=== PATIENT | female | born 1945 | race African-American/Black ===

== ENCOUNTER 2020-03-13 15:18 | Outpatient (CLI) | payer MEDICARE ==
--- NOTE | 2020-03-13 15:45 | RAD ---
3 views of the right shoulder: 03/13/2020 COMPARISON: None HISTORY: Pain, fall FINDINGS: There is mild degenerative change involving the right acromioclavicular joint. No widening of the acromioclavicular or coracoclavicular interspace. No acute fracture or dislocation. There is a large mass like opacity in the right hilar region extending into the right lung apex with complete opacification of the right upper lobe region. This opacity measures 10.6 x 13[address] is advised. This is suspicious for lung cancer. IMPRESSION: Large mass in the right hilum/right lung apex for which CT of the chest with IV contrast is advised. No acute fracture or dislocation is seen involving the right shoulder. Results discussed with Dr. Leal via phone at 3:40 PM 03/13/2020 Code CR
== END 2020-03-13 15:19 | disposition home or self-care (01) ==
LOC: BICRAD 15:18
PROVIDERS: ATTEND Family Medicine
DX: M25.511 Pain in right shoulder (principal); R91.8 Other nonspecific abnormal finding of lung field

== ENCOUNTER 2020-03-25 14:42 | Outpatient (CLI) | payer MEDICARE ==
[~2020-03-25 14:42] MED LIST: Iopamidol-370 76% 500 ML 1 ML ONE
[2020-03-25 15:19] LABS: Estimated GFR-MDRD - POC Greater than 90
--- NOTE | 2020-03-25 15:58 | CT ---
Chest CT with IV contrast: 03/25/2020 COMPARISON: None HISTORY: Abnormal shoulder radiograph, concern for malignancy TECHNIQUE: Axial CT imaging obtained at 3 mm intervals through the chest with IV contrast. Coronal an d sagittal reformatted imaging obtained. FINDINGS: There is a mildly enlarged axillary lymph node on the right measuring 1.1 cm in short axis dimension. Mildly prominent left axillary lymph nodes are noted measuring just less than a centimeter in size. There is a large heterogeneous mass lesion which fills replaces the entire right upper lobe measuring at least 11.2 cm x 10.9 cm x 11.4 cm. This lesion appears to directly invade the superior mediastinum superiorly with tumor obliterates the superior vena cava with marked narrowing of the bra chiocephalic vein. There is associated clot within the superior vena cava suggesting tumor thrombus measuring 9 mm in AP dimension, best seen on axial image 42. The bronchus supplying the right upper l obe is obliterated. Tumor encircles and narrows the right mainstem bronchus. Low-density necrotic metastatic adenopathy is noted in the precarinal region measuring 1.8 cm and in the subcarinal region measuring 1.5 cm. There are multiple small nodes in the AP window measuring up to 1 cm, suspicious for metastatic disease as well. Tumor abuts/encircles and narrows the pulmonary artery supplying the right upper lobe. There is a small associated right pleural effusion. There is a markedly enlarged and macrolobulated thyroid gland in total measuring 5.7 cm in AP dimensi on and 9 cm in transverse dimension. 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 The liver is not fully imaged on this examination. No discrete left adrenal mass. Possible small right adrenal nodule superiorly measuring 1.1 cm. There is an irregularly marginated pulmonary parenchymal nodule within the superior aspect of the lef t upper lobe laterally measuring 1 cm on image 21. Left upper lobe pulmonary nodule on image 26 measuring 5 mm and on image 32 measuring 1 cm. There is a pleural-based nodule in the left lung apex measuring 6 mm. Nonspecific groundglass opacity noted centrally within the left upper and left lower lobe. Nonspecific patchy areas of groundglass opacity are noted centrally within the right midd le and right lower lobe. Review of the osseous structures demonstrates no discrete lytic or blastic bone lesion. IMPRESSION: Large necrotic mass centered within the right upper lobe highly suspicious for bronchogen ic carcinoma with direct invasion of the mediastinum as well has findings suspicious for metastatic disease with axillary lymph nodes bilaterally and pulmonary nodules on the left. Whole-body imaging a dvised for full assessment as the abdomen is not fully imaged in the pelvis is not imaged on this exam. There may be a small right adrenal nodule. Areas of groundglass opacity within both lungs may s ignify interstitial metastatic disease or superimposed inflammatory/infectious process. 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 Results were called to Dr. Leal at 3:45 PM 03/25/2020
== END 2020-03-25 14:43 | disposition home or self-care (01) ==
LOC: BICCT 14:42
PROVIDERS: ATTEND Family Medicine
DX: C34.90 Malignant neoplasm of unspecified part of unspecified bronchus or lung (principal); R91.8 Other nonspecific abnormal finding of lung field; E27.8 Other specified disorders of adrenal gland
CPT/HCPCS: 71260; 82565; Q9967

== ENCOUNTER 2020-03-29 08:23 | Day surgery (SDC) | payer MEDICARE ==
[2020-03-28 14:00] VITALS: BMI 22.4
--- NOTE | 2020-03-29 09:20 | HP ---
HISTORY OF PRESENT ILLNESS: The patient is a 74-year-old female, half pack a day smoker for most of her life, who recently had apparently fall, complained of some shoulder pain. X-ray of the shoulder was done, which showed a right lung mass. She underwent subsequently CT, which showed and confirmed the right upper lung mass. She is here for ongoing evaluation. She has a slight cough, but no fever or chills. In fact, she denies any prior history of TB, pneumonia, or bronchial asthma. She says on a good day, she can walk a fair distance without getting markedly short of breath. She has lost 20 pounds. PAST MEDICAL HISTORY: Pertinent for diabetes, hypertension. PREVIOUS SURGERIES: None. CHRONIC MEDICATIONS: 1. Metformin 500 twice a day. 2. Aspirin 81. 3. Ramipril 2.5. 4. B12. 5. Glyburide 5 a day. ALLERGIES: NONE. SOCIAL AND FAMILY HISTORY: Unremarkable. REVIEW OF SYSTEMS: Ten-point negative. PHYSICAL EXAMINATION: VITAL SIGNS: on room air, blood pressure 130/80, pulse 80, respiratory rate 18. NECK: She has a large goiter, which has been there for 2 years, being followed by primary care physician. CHEST: Reveals rhonchi, right greater than left. CARDIAC: Normal S1, S2. No gallops. ABDOMEN: Soft without any masses. IMPRESSION: 1. Large right upper lung mass. 2. Diabetes. 3. Tobacco abuse. 4. Goiter. 5. Hypertension. PLAN: Bronchoscopy and biopsy recommended in the next several days thereafter. In the mean time, she is advised to refrain from smoking. Job ID: [id number]
[2020-03-29] MEDS ORDERED: Fentanyl 100 MCG/2 ML VIAL ONE (11:06)
[2020-03-29] MEDS ORDERED: Famotidine/PF 20 mg/2ml Vial ONE (11:06)
[2020-03-29] MEDS ORDERED: PROPOFOL 200 MG/20 ML VIAL ONE (13:11)
[2020-03-29] MEDS ORDERED: Metoclopramide HCl 10 MG/2 ML VIAL ONE (13:11)
[2020-03-29] MEDS ORDERED: Succinylcholine 200 MG/10 ml SYRINGE FS ONE (13:11)
[2020-03-29] MEDS ORDERED: Lidocaine 1% PF 5 ML VIAL ONE (13:11)
[2020-03-29] MEDS ORDERED: Ondansetron PF 4 MG/2 ML Vial ONE (13:11)
--- NOTE | 2020-03-29 13:41 | OP ---
DATE OF PROCEDURE: 03/29/2020 INDICATION: Africa Shafer is a 74-year-old female, who underwent a diagnostic bronchoscopy and right upper lung mass rule out bronchogenic carcinoma. POSTBRONCHOSCOPY DIAGNOSIS: Africa Shafer is a 74-year-old female, who underwent a diagnostic bronchoscopy and right upper lung mass rule out bronchogenic carcinoma. DESCRIPTION OF PROCEDURE: After informed consent, the patient was put to sleep under anesthesia. A #[address] The flexible Olympus video bronchoscope was then passed using an adapter. Distal trachea was visualized, which was normal. Paulina was sharp. Left lung, left upper, and left lower lobe unremarkable. In the right lung, right upper lobe bronchus, and right bronchus intermedius was markedly abnormal with nodular thickened mucosa. The basilar segments were normal. The right upper lobe bronchus was markedly narrowed, particularly the apical segment was completely occluded. I was unable to visualize any of the subsegments. The posterior 90% was open, but markedly narrowed. Area at the apical segment was lavaged with normal saline. Thereafter, multiple biopsies and brushings from the abnormal nodular mucosa corresponding to the apical segment was done. There was some brisk bleeding, which was controlled with epinephrine 1:10,000. The patient otherwise tolerated the procedure well. She will be extubated by Anesthesia. She will be discharged home eventually. The washing was sent for cytology. Brushings were sent for cytology. Biopsies were sent to Histopathology. patient tolerated the procedure well. Results of the above test reported to the patient and family. Further recommendation thereafter. Please note, the patient will be extubated by Anesthesia, once she awakes she will be discharged home. Job ID: [id number]
--- NOTE | 2020-04-03 08:30 | EKG ---
Test Reason : JBM Blood Pressure : / mmHG Vent. Rate : 071 BPM Atrial Rate : 071 BPM P-R Int : 160 ms QRS Dur : 072 ms QT Int : 398 ms P-R-T Axes : 059 -07 047 degrees QTc Int : 432 ms Normal sinus rhythm Normal ECG No previous ECGs available Confirmed by LEILANI LEUNG MD ([id number] on 04/03/2020 8:30:16 AM Referred By: FRANSICO Confirmed By:LEILANI LEUNG MD
== END 2020-03-29 14:30 | disposition home or self-care (01) ==
LOC: SDC 08:23
PROVIDERS: ATTEND Internal Medicine Pulmonary Disease
PROC: 0BB48ZX Excision of Right Upper Lobe Bronchus, Via Natural or Artificial Opening Endoscopic, Diagnostic (ICD-10-PCS; principal; 2020-03-29)
PROC: 0BDC8ZX Extraction of Right Upper Lung Lobe, Via Natural or Artificial Opening Endoscopic, Diagnostic (ICD-10-PCS; 2020-03-29)
DX: C34.11 Malignant neoplasm of upper lobe, right bronchus or lung (principal); E11.9 Type 2 diabetes mellitus without complications; I10 Essential (primary) hypertension; F17.210 Nicotine dependence, cigarettes, uncomplicated; E04.9 Nontoxic goiter, unspecified; E78.5 Hyperlipidemia, unspecified; K59.09 Other constipation; Z79.82 Long term (current) use of aspirin; Z79.84 Long term (current) use of oral hypoglycemic drugs; Z79.899 Other long term (current) drug therapy
CPT/HCPCS: 88104; 88112; 88305; 88313; 88341; 88342; 93005; 93010; J2405; J2704; J2765; J3010; S0028

== ENCOUNTER 2020-04-12 11:33 | Outpatient (CLI) | payer MEDICARE ==
--- NOTE | 2020-04-12 13:16 | PET ---
Nuclear medicine FDG PET/CT: (Positron emission tomography and computed tomography) DATE: 04/12/2020 HISTORY: 74-year-old female with malignant neoplasm of upper lobe of right lung. Initial staging. COMPARISON: CT chest 03/25/2020 no prior PET TECHNIQUE: IV injection of F-18 fluorodeoxyglucose (FDG) dose: 11.1 mCi. PET scan and attenuation correction CT performed from skull base to proximal thighs. FINDINGS: SUV (standard uptake values) numbers given are maximum SUVs. QCLR used. The entire thyroid gland is severely diffusely enlarged, but not hypermetabolic (SUV 1.6). The 1 cm left upper lobe noncalcified pulmonary nodule has SUV of 2.4 (below the threshold of 2.5, bu t that could be due to its small size). 0.5 cm apical segment left upper lobe pulmonary nodule superior and lateral to that has SUV of 0.9 (n onhypermetabolic, but that could be because it is too small). Superior to that, a 1 cm groundglass nodule abutting the anterolateral pleural surface has SUV of 1.3 , nonhypermetabolic. The huge right upper lobe pulmonary mass has SUV of 17.1 it invades the mediastinum, reaching the pre carinal, pretracheal midline. Just to the left of that the left precarinal 1 cm lymph node has SUV of 1.9, not hypermetabolic. The 1.1 cm right axillary lymph node Not hypermetabolic, with SUV of 1.1. None of the multiple mildly prominent left axillary lymph nodes are hypermetabolic, with SUV 1.3. nonhypermetabolic right moderate-sized pleural effusion with SUV 2.3. New tiny left pleural effusion. No hypermetabolic pleural nodules. No hypermetabolic suspicious activity in neck, abdomen, or pelvis. IMPRESSION: 1) huge right upper lobe lung cancer with high FDG uptake, SUV 17.1. 2) there are 3 small left upper lobe pulmonary nodules, 2 of them solid and one of them groundglass. None of them reach the threshold SUV of 2.5, but that could be because they are too small. 3) the right upper lobe lung tumor is associated with malignant right mediastinal lymphadenopathy esha t reaches the midline, but does not cross the midline to the left. The mediastinal 1 cm lymph node just to the left of midline is not hypermetabolic. 4) moderate size right pleural effusion and tiny left pleural effusion. 5) no distant metastasis. 6) severely diffusely enlarged thyroid gland is not hypermetabolic.
== END 2020-04-12 11:34 | disposition home or self-care (01) ==
LOC: PET 11:33
PROVIDERS: ATTEND Internal Medicine Hematology & Oncology
DX: C34.01 Malignant neoplasm of right main bronchus (principal); R91.8 Other nonspecific abnormal finding of lung field; J90 Pleural effusion, not elsewhere classified; R59.0 Localized enlarged lymph nodes; E04.9 Nontoxic goiter, unspecified
CPT/HCPCS: 78815; A9552

== ENCOUNTER 2020-07-16 13:26 | Inpatient (IN) | payer MEDICARE ==
[2020-07-16] MEDS ORDERED: Acetaminophen 325 MG TAB PO PRN (15:35)
[2020-07-16 16:01] LABS: Hemoglobin 6.5 g/dL (12.0-16.0); Mean Corpuscular HGB CONC 33.3 g/dL (32.0-36.0); Mean Corpuscular Hemoglobin 27.9 pg (27.0-31.0); Mean Corpuscular Volume 83.8 fL (78.0-98.0); Platelet Count 51 thou/uL (130-400); RBC Distribution Width 19.3 % (11.5-14.5); Red Blood Cell (RBC) Count 2.34 mill/uL (4.20-5.40); White Blood Cell (WBC) Count 59.3 thou/uL (4.8-10.8)
[2020-07-16 16:04] LABS: INR-International Normal Ratio 3.8; Prothrombin Time 38.2 sec (12.0-14.7)
[2020-07-16 16:05] LABS: D-Dimer Test 2.36 *mcg/mL (0.27-0.43)
[2020-07-16 16:16] LABS: ALT (SGPT) 11 U/L (8-55); AST (SGOT) 21 U/L (5-34); Albumin 3.4 g/dL (3.4-4.8); Alkaline Phosphatase 170 U/L (40-110); Anion Gap 16 mmol/L (10-20); Anisocytosis SLIGHT = 6-15 cells (100X) (0-5/hpf); BUN (Urea Nitrogen) 17 mg/dL (9.8-20.1); Band 30 % (5-11); Bilirubin, Total 0.3 mg/dL (0.2-1.2); CK (CPK) 35 U/L (29-168); Calc. Creatinine Clearance 0 mL/min (70-130); Calcium 8.3 mg/dL (7.8-10.44); Carbon Dioxide 24 mmol/L (23-31); Chloride 102 mmol/L (98-107); Differential Comment Blast-Like Cell(s); Globulin 2.6 g/dL (2.4-3.5); Glucose 91 mg/dL (83-110); Lipase 7 U/L (8-78); Lymphocytes 4 % (21-51); MDiff Complete? YES; Metamyelocyte 3 % (0-0); Monocytes 5 % (0-10); Myelocyte 5 % (0-0); Neutrophil 52 % (42-75); Ovalocytes SLIGHT = 2-5 cells (100X) (0-1/hpf); Platelet Morphology Comment Appears Decreased; Polychromasia SLIGHT = 2-3 cells (100X) (0-2/hpf); Potassium 3.7 mmol/L (3.5-5.1); Reflex for Review?? YES; Sodium 138 mmol/L (136-145)
[2020-07-16 16:24] LABS: PTT Greater than 250.0 sec (22.9-36.1)
[2020-07-16 16:44] LABS: Fibrinogen 491 mg/dL (253-463)
[2020-07-16 16:51] LABS: FSP-Qualitative ABNORMAL (Normal); FSP-Semiquantitative >=5 & <20 mcg/mL (Less than 5)
[2020-07-16] MEDS ORDERED: Dextrose 50% Abboject 50 ML SYRINGE SLOW IVP PRN (16:57)
[2020-07-16] MEDS ORDERED: Dextrose 5% in Water 1,000 ML IV PRN (16:57)
[2020-07-16] MEDS ORDERED: HumaLOG 300 UNITS/3 ML VIAL SC PRN ×2 (16:57)
[2020-07-16 17:13] VITALS: BMI 20.1
[2020-07-16] MEDS: metFORMIN 500 MG TAB PO SCH (17:57)
[2020-07-16] MEDS: Atorvastatin Calcium 40 MG TAB PO SCH (22:18)
[2020-07-17 03:33] LABS: Hemoglobin 8.4 g/dL (12.0-16.0); Mean Corpuscular HGB CONC 33.4 g/dL (32.0-36.0); Mean Corpuscular Hemoglobin 28.6 pg (27.0-31.0); Mean Corpuscular Volume 85.8 fL (78.0-98.0); Mean Platelet Volume 8.5 fL (7.4-10.4); Platelet Count 117 thou/uL (130-400); RBC Distribution Width 18.2 % (11.5-14.5); Red Blood Cell (RBC) Count 2.92 mill/uL (4.20-5.40); White Blood Cell (WBC) Count 55.1 thou/uL (4.8-10.8)
[2020-07-17 03:51] LABS: ALT (SGPT) 13 U/L (8-55); AST (SGOT) 23 U/L (5-34); Albumin 3.4 g/dL (3.4-4.8); Alkaline Phosphatase 169 U/L (40-110); Anion Gap 12 mmol/L (10-20); BUN (Urea Nitrogen) 15 mg/dL (9.8-20.1); Bilirubin, Total 1.7 mg/dL (0.2-1.2); Calc. Creatinine Clearance 60 mL/min (70-130); Calcium 8.9 mg/dL (7.8-10.44); Carbon Dioxide 28 mmol/L (23-31); Chloride 100 mmol/L (98-107); Globulin 2.7 g/dL (2.4-3.5); Glucose 87 mg/dL (83-110); Potassium 3.6 mmol/L (3.5-5.1); Protein, Total 6.1 g/dL (5.8-8.1); Sodium 136 mmol/L (136-145)
[2020-07-17 03:58] LABS: Band 25 % (5-11); Differential Comment Blast-Like Cell(s); Hypochromia SLIGHT = 6-15 cells (100X) (0-5/hpf); Lymphocytes 8 % (21-51); MDiff Complete? YES; Metamyelocyte 6 % (0-0); Monocytes 9 % (0-10); Neutrophil 48 % (42-75); Platelet Morphology Comment Appears Decreased; Promyelocytes 1 % (0-0); Toxic Granulation SLIGHT
[2020-07-17 06:47] LABS: SARS-CoV-2 PCR by NAA Not Detected (NotDetected)
[2020-07-17] MEDS ORDERED: Potassium Chloride 20 MEQ TAB PO SCH (08:00)
[2020-07-17] MEDS: metFORMIN 500 MG TAB PO SCH (08:28)
[2020-07-17] MEDS: Folic Acid 1 MG TAB PO SCH (08:28)
[2020-07-17] MEDS: Cholecalciferol 1,000 UNITS (25 MCG) TAB PO SCH (08:28)
[2020-07-17 08:41] LABS: INR-International Normal Ratio 1.2; PTT 27.6 sec (22.9-36.1); Prothrombin Time 14.9 sec (12.0-14.7)
[2020-07-17] MEDS ORDERED: Furosemide 20 MG TAB PO SCH (09:00)
[2020-07-17] MEDS: Atorvastatin Calcium 40 MG TAB PO SCH (19:41)
[2020-07-18 05:11] LABS: INR-International Normal Ratio 1.1; PTT 27.7 sec (22.9-36.1); Prothrombin Time 14.2 sec (12.0-14.7)
[2020-07-18 05:30] LABS: ALT (SGPT) 12 U/L (8-55); AST (SGOT) 19 U/L (5-34); Albumin 3.3 g/dL (3.4-4.8); Alkaline Phosphatase 169 U/L (40-110); Anion Gap 13 mmol/L (10-20); BUN (Urea Nitrogen) 13 mg/dL (9.8-20.1); Bilirubin, Total 0.5 mg/dL (0.2-1.2); Calc. Creatinine Clearance 61 mL/min (70-130); Calcium 8.9 mg/dL (7.8-10.44); Carbon Dioxide 27 mmol/L (23-31); Chloride 102 mmol/L (98-107); Globulin 2.7 g/dL (2.4-3.5); Glucose 110 mg/dL (83-110); Potassium 3.6 mmol/L (3.5-5.1); Sodium 138 mmol/L (136-145)
[2020-07-18 06:01] LABS: Band 48 % (5-11); Eosinophils 1 % (0-10); Hemoglobin 8.6 g/dL (12.0-16.0); Lymphocytes 1 % (21-51); MDiff Complete? YES; Mean Corpuscular HGB CONC 33.9 g/dL (32.0-36.0); Mean Corpuscular Volume 85.5 fL (78.0-98.0); Mean Platelet Volume 8.9 fL (7.4-10.4); Metamyelocyte 2 % (0-0); Monocytes 7 % (0-10); Myelocyte 4 % (0-0); Neutrophil 37 % (42-75); Platelet Count 120 thou/uL (130-400); Platelet Morphology Comment Appears Decreased; RBC Distribution Width 18.3 % (11.5-14.5); Red Blood Cell (RBC) Count 2.96 mill/uL (4.20-5.40); White Blood Cell (WBC) Count 51.3 thou/uL (4.8-10.8)
[2020-07-18] MEDS: Folic Acid 1 MG TAB PO SCH (09:08)
[2020-07-18] MEDS: Cholecalciferol 1,000 UNITS (25 MCG) TAB PO SCH (09:08)
[2020-07-18 13:07] VITALS: BP 92/53; TEMP 97.6
== END 2020-07-18 14:00 | disposition home health service (06) | DRG 82 ==
LOC: ERS 13:26 → ONC 15:03
PROVIDERS: ADMIT Family Medicine; ATTEND Family Medicine
PROC: 30233R1 Transfusion of Nonautologous Platelets into Peripheral Vein, Percutaneous Approach (ICD-10-PCS; principal; 2020-07-16)
PROC: 30233N1 Transfusion of Nonautologous Red Blood Cells into Peripheral Vein, Percutaneous Approach (ICD-10-PCS; 2020-07-16)
DX: S06.5X9A Traumatic subdural hemorrhage with loss of consciousness of unspecified duration, initial encounter (principal); G93.5 Compression of brain; C34.91 Malignant neoplasm of unspecified part of right bronchus or lung; C79.31 Secondary malignant neoplasm of brain; I87.1 Compression of vein; Z20.822 Contact with and (suspected) exposure to COVID-19; E78.00 Pure hypercholesterolemia, unspecified; E11.9 Type 2 diabetes mellitus without complications; E04.9 Nontoxic goiter, unspecified; R40.2362 Coma scale, best motor response, obeys commands, at arrival to emergency department; R40.2142 Coma scale, eyes open, spontaneous, at arrival to emergency department; R40.2252 Coma scale, best verbal response, oriented, at arrival to emergency department; E78.5 Hyperlipidemia, unspecified; D64.9 Anemia, unspecified; D69.6 Thrombocytopenia, unspecified; D72.829 Elevated white blood cell count, unspecified; T45.8X5A Adverse effect of other primarily systemic and hematological agents, initial encounter; Z87.891 Personal history of nicotine dependence; Z79.01 Long term (current) use of anticoagulants; Z79.84 Long term (current) use of oral hypoglycemic drugs; Z79.82 Long term (current) use of aspirin; Z79.899 Other long term (current) drug therapy; Z86.718 Personal history of other venous thrombosis and embolism; W18.12XA Fall from or off toilet with subsequent striking against object, initial encounter
CPT/HCPCS: 36415; 36416; 36430; 70450; 70553; 71045; 80053; 82550; 83036; 83690; 85025; 85060; 85362; 85379; 85384; 85610; 85730; 86850; 86900; 86901; 87635; 93005; A9579; J1642; P9016; P9035; U0003; U0005

== ENCOUNTER 2020-08-08 08:04 | Outpatient (CLI) | payer MEDICARE | END 2020-08-08 08:05 | disposition home or self-care (01) | LOC: PET 08:04 | PROVIDERS: ATTEND Internal Medicine Hematology & Oncology | DX: C34.01 Malignant neoplasm of right main bronchus (principal); C79.31 Secondary malignant neoplasm of brain; R19.00 Intra-abdominal and pelvic swelling, mass and lump, unspecified site; J90 Pleural effusion, not elsewhere classified | CPT/HCPCS: 78815; A9552 ==

== ENCOUNTER 2020-08-26 10:43 | Outpatient (CLI) | payer MEDICARE | END 2020-08-26 10:44 | disposition home or self-care (01) | LOC: TBSIIMAG 10:43 | PROVIDERS: ATTEND Neurological Surgery | DX: I62.03 Nontraumatic chronic subdural hemorrhage (principal); R22.0 Localized swelling, mass and lump, head | CPT/HCPCS: 70450 ==